=== PATIENT | female | born 1945 | race Caucasian/White ===

== ENCOUNTER 2021-12-05 08:20 | Emergency (ER) | payer OTHER ==
[~2021-12-05] VITALS: Ht 157.5 cm; Wt 88.0 kg
[~2021-12-05 08:20] MED LIST: CARDIZEM CD180 M1; DEPO-MEDRO40 MG/1 ML IJ; HYMOVIS24 MG/3 ML IU; HYZAAR 100/25 T1 TAB; LIDODERM1 EACH {1, null}; METFORMIN HCL500 MG; SYNTHROID88 MCG; VOLTAREN100 GM {1, null}
== END 2021-12-05 11:15 | disposition home or self-care (01) ==
LOC: ER 08:20
DX: U07.1 COVID-19 (principal)

== ENCOUNTER 2022-02-20 10:50 | Emergency (ER) | payer OTHER ==
[~2022-02-20] VITALS: Ht 162.6 cm; Wt 87.1 kg
[2022-02-20] MEDS ORDERED: PEPCID AC20 MG PO (17:19)
[2022-02-20] MEDS ORDERED: DRAMAMINE LESS25 MG PO (17:19)
[2022-02-20] MEDS ORDERED: ONDANSETRON ODT4 MG PO (17:19)
== END 2022-02-20 17:43 ==
LOC: ER 10:50
DX: K29.70 Gastritis, unspecified, without bleeding (principal); R07.89 Other chest pain; Z88.0 Allergy status to penicillin; Z88.2 Allergy status to sulfonamides; E11.9 Type 2 diabetes mellitus without complications; Z79.84 Long term (current) use of oral hypoglycemic drugs; I25.10 Atherosclerotic heart disease of native coronary artery without angina pectoris; E03.9 Hypothyroidism, unspecified; I10 Essential (primary) hypertension

== ENCOUNTER 2022-03-22 17:17 | Emergency (ER) | payer OTHER ==
[~2022-03-22] VITALS: Ht 160 cm; Wt 86.6 kg
[~2022-03-22 17:17] MED LIST changes: +DRAMAMINE LESS25 MG PO; +ONDANSETRON ODT4 MG PO; +PEPCID AC20 MG PO
== END 2022-03-22 18:16 | disposition home or self-care (01) ==
LOC: ER 17:17
DX: M62.838 Other muscle spasm (principal)

== ENCOUNTER 2022-04-26 08:46 | Emergency (ER) | payer OTHER ==
[~2022-04-26] VITALS: Ht 162.6 cm; Wt 885.4 kg
== END 2022-04-26 10:42 | disposition home or self-care (01) ==
LOC: ER 08:46
DX: K13.0 Diseases of lips (principal); Z88.0 Allergy status to penicillin; Z88.8 Allergy status to other drugs, medicaments and biological substances

== ENCOUNTER → 2023-01-10 06:00 | Outpatient (CLI) | payer OTHER ==
[~2023-01-10] VITALS: Ht 157.5 cm; Wt 87.1 kg
[~2023-01-10 06:00] MED LIST changes: +FENOFIBRATE50 MG PO; +ZOCOR20 MG PO
[2023-01-10 08:39] LABS: URINE APPEARANCE Clear; URINE BILIRRUBIN Negative (NEGATIVE); URINE BLOOD Negative; URINE COLOR Dark Yellow; URINE GLUCOSE Negative (NEGATIVE); URINE LEUKOCYTE Moderate; URINE NITRATE Negative; URINE PROTEIN 30 (NEGATIVE)
[2023-01-10 08:43] LABS: URINE BACTERIA 102.7 uL (0.0-1933); URINE EPITHELIAL CELLS 14.2 uL (0.0-38.8); URINE RBC 5.3 uL (0.0-20.8); URINE WBC 220.7 uL (0.0-23.2)
[2023-01-10 09:19] LABS: INR 1.04; PARTIAL THROMBOPLASTIN TIME 26.7 SECONDS (22.0-34.0); PROTHROMBIN TIME 10.9 SECONDS (9.0-11.5)
[2023-01-10 09:22] LABS: URINE CRYSTALS NEGATIVE /HPF
[2023-01-10 11:28] LABS: HEMATOCRIT 37.8 % (36.0-45.00); HEMOGLOBIN 12.1 g/dL (12.0-15.00); MEAN CELL VOLUME 76.6 fL (80.00-100.00); MEAN CORPUSCULAR HEMOGLOBIN 24.6 pg (27.00-32.0); MEAN CORPUSCULAR HGB CONC 32.1 g/dl (32.0-36.0); PLATELET COUNT 341 K/uL (150-450); RED BLOOD COUNT 4.94 M/uL (4.00-6.00); RED CELL DISTRIBUTION WIDTH 15.7 % (11.5-14.5)
[2023-01-10 11:59] LABS: BILIRUBIN TOTAL 0.52 mg/dL (0.3-1.2); CALCIUM 9.3 mg/dL (8.5-10.1); CREATININE SERUM 0.78 mg/dL (0.55-1.02); GFR 71.24; GLOBULINA 4.4 G/DL (2.4-3.5); POTASSIUM 3.69 mEq/L (3.5-5.1); TOTAL PROTEIN 8.4 gm/dL (6.4-8.2)
== END | disposition home or self-care (01) ==
LOC: LAB 06:00 → EDSTATUS 01-16 07:45 → SURG 01-16 07:45
PROVIDERS: ATTEND Orthopaedic Surgery
DX: Z01.818 Encounter for other preprocedural examination (principal); Z01.810 Encounter for preprocedural cardiovascular examination; M17.12 Unilateral primary osteoarthritis, left knee; Z20.822 Contact with and (suspected) exposure to COVID-19

== ENCOUNTER 2023-02-01 07:28 | Outpatient (CLI) | payer OTHER | END 2023-02-01 07:41 | disposition home or self-care (01) | LOC: NUCLEAR 07:28 | PROVIDERS: ATTEND Internal Medicine Cardiovascular Disease | DX: I20.1 Angina pectoris with documented spasm (principal) | CPT/HCPCS: 78452; 93017; A9500; J0153 ==